=== PATIENT | male | born 1945 | race Caucasian/White ===

== ENCOUNTER → 2016-12-17 | Outpatient (CLI) | payer OTHER ==
[~2016-12-17] MED LIST: BICA50TA; CALC600T4; CHOL2000; GLUC1TAB21; MULT-717; OMEG300C; OMNIPAQUE 350 MG/ML, 100ML BOTTLE ONE; TAMS0.4C2; VITA150T; ZINC1CAP
== END | disposition home or self-care (01) ==
LOC: CFH 08:44
PROVIDERS: ATTEND Urology
DX: C61 Malignant neoplasm of prostate (principal); N28.1 Cyst of kidney, acquired
CPT/HCPCS: 74178; Q9967

== ENCOUNTER → 2018-01-10 | Outpatient (CLI) | payer OTHER ==
[~2018-01-10] MED LIST changes: -BICA50TA; +BICA50TA48; -OMNIPAQUE 350 MG/ML, 100ML BOTTLE ONE
== END | disposition home or self-care (01) ==
LOC: CFH 08:14
PROVIDERS: ATTEND Urology
DX: C61 Malignant neoplasm of prostate (principal); M81.0 Age-related osteoporosis without current pathological fracture; F17.210 Nicotine dependence, cigarettes, uncomplicated
CPT/HCPCS: 77080

== ENCOUNTER → 2018-01-14 | Outpatient (CLI) | payer OTHER ==
[~2018-01-14] MED LIST changes: +OMNIPAQUE 350 MG/ML, 100ML BOTTLE ONE
== END | disposition home or self-care (01) ==
LOC: RAD 08:50
PROVIDERS: ATTEND Urology
DX: N42.9 Disorder of prostate, unspecified (principal); E04.2 Nontoxic multinodular goiter; R91.1 Solitary pulmonary nodule; K57.30 Diverticulosis of large intestine without perforation or abscess without bleeding; N28.1 Cyst of kidney, acquired; C61 Malignant neoplasm of prostate; Z87.891 Personal history of nicotine dependence
CPT/HCPCS: 71260; 74177; 78306; A9503; Q9967

== ENCOUNTER → 2018-04-02 | Outpatient (CLI) | payer OTHER ==
[~2018-04-02] MED LIST changes: +ASCO10004 PO; +ATOR10TA PO; +CALC1CAP8 PO; +CHOL200052 PO; +ENZA40CA PO; +FISH OIL PO; +GLUC1TAB35 PO; +LISI-167 PO; +MULT-516 PO; +OCCUVITE PO; -OMNIPAQUE 350 MG/ML, 100ML BOTTLE ONE; +SAW/1TAB2 PO; +VIT1TABL32 PO; +VITA150T PO
[2018-04-02 15:43] LABS: ALANINE AMINOTRANSFERASE 19 U/L (12-78); ALBUMIN 3.9 g/dL (3.4-5.0); ANION GAP 8 mmol/L (5-15); CALCIUM 9.1 mg/dL (8.5-10.1); CHLORIDE 108 mmol/L (98-107); CREATININE 1.16 mg/dL (0.7-1.3)
[2018-04-02 15:45] LABS: ALKALINE PHOSPHATASE 91 U/L (45-117); BILIRUBIN,TOTAL 0.6 mg/dL (0.2-1.0); TOTAL PROTEIN 7.3 g/dL (6.4-8.2)
== END | disposition home or self-care (01) ==
LOC: STAR 14:24
PROVIDERS: ATTEND Urology
DX: Z01.818 Encounter for other preprocedural examination (principal); D41.4 Neoplasm of uncertain behavior of bladder
CPT/HCPCS: 36415; 80053; 93005

== ENCOUNTER 2018-04-09 05:40 | Day surgery (SDC) | payer OTHER ==
[~2018-04-09] VITALS: Ht 182.9 cm; Wt 86.7 kg
[2018-04-09] MEDS ORDERED: LACTATED RINGERS 1,000 ML IV SCH (06:10)
[2018-04-09 06:35] VITALS: BP 129/80
[2018-04-09] MEDS ORDERED: MITOMYCIN 40 MG, WATER FOR INJECTION,STERILE 40 ML in SYRINGE 1 EA INTVESIC ONE (07:30)
[2018-04-09] MEDS ORDERED: PROPOFOL 10 MG/ML, 20ML ONE (07:32)
[2018-04-09] MEDS ORDERED: CEFAZOLIN 1,000 MG ONE (07:32)
[2018-04-09] MEDS ORDERED: FENTANYL PF 100 MCG/2ML ONE (07:36)
[2018-04-09] MEDS ORDERED: MIDAZOLAM 1 MG/ML, 2ML ONE (07:36)
[2018-04-09] MEDS ORDERED: FENTANYL PF 100 MCG/2ML IV PRN (08:30)
[2018-04-09] MEDS ORDERED: ONDANSETRON 2MG/ML, 2ML IVPush PRN (08:30)
[2018-04-09] MEDS ORDERED: MIDAZOLAM 1 MG/ML, 2ML IV PRN (08:30)
[2018-04-09] MEDS ORDERED: MEPERIDINE/PF 25MG/0.5ML IVPush PRN (08:30)
[2018-04-09] MEDS ORDERED: LABETALOL 5MG/ML, 20ML IV PRN (08:30)
[2018-04-09] MEDS ORDERED: HYDROmorphone 1 MG/ML, 1ML IV PRN (08:30)
[2018-04-09] MEDS ORDERED: OXYcodone 5 MG/5 ML ORAL.SOL UDC PO PRN (08:30)
== END 2018-04-09 11:05 | disposition home or self-care (01) ==
LOC: OUT 05:40
PROVIDERS: ATTEND Urology
DX: C67.9 Malignant neoplasm of bladder, unspecified (principal); I10 Essential (primary) hypertension; Z72.89 Other problems related to lifestyle; Z85.46 Personal history of malignant neoplasm of prostate
CPT/HCPCS: 52234; 88307; J0690; J2250; J2704; J3010; J7120

== ENCOUNTER 2018-04-09 23:11 | Emergency (ER) | payer OTHER ==
[~2018-04-09] VITALS: Ht 182.9 cm; Wt 87.3 kg
[2018-04-10 00:18] VITALS: BP 136/67
== END 2018-04-10 01:11 | disposition home or self-care (01) ==
LOC: ED 23:59
DX: R33.9 Retention of urine, unspecified (principal); Z87.891 Personal history of nicotine dependence
CPT/HCPCS: 51702; 99284

== ENCOUNTER → 2018-06-12 | Outpatient (CLI) | payer MEDICARE ==
[~2018-06-12] MED LIST changes: +OMNIPAQUE 350 MG/ML, 100ML BOTTLE ONE
== END | disposition home or self-care (01) ==
LOC: PETCFH 07:42
PROVIDERS: ATTEND Urology
DX: C61 Malignant neoplasm of prostate (principal); C79.51 Secondary malignant neoplasm of bone; M47.814 Spondylosis without myelopathy or radiculopathy, thoracic region; N28.1 Cyst of kidney, acquired; I70.0 Atherosclerosis of aorta; J43.9 Emphysema, unspecified; R91.1 Solitary pulmonary nodule; E29.1 Testicular hypofunction; R97.20 Elevated prostate specific antigen [PSA]; N52.9 Male erectile dysfunction, unspecified
CPT/HCPCS: 71260; 74177; 78306; 82565; A9503; Q9967

== ENCOUNTER → 2018-09-10 | Outpatient (CLI) | payer MEDICARE ==
[~2018-09-10] MED LIST changes: +ABIR250T PO; +ATOR10TA9 PO; +C,E,1CAP PO; +GLUC500T11 PO; +OMEG1CAP23 PO; -OMNIPAQUE 350 MG/ML, 100ML BOTTLE ONE; +PRED5TAB PO; +Super B Complex PO; +TAMS-11 PO; +Vitamin D3 PO
[2018-09-10 15:41] LABS: MICROSCOPIC INDICATED
[2018-09-10 15:50] LABS: ALANINE AMINOTRANSFERASE 22 U/L (12-78); ANION GAP 5 mmol/L (5-15); CALCIUM 9.9 mg/dL (8.5-10.1); CHLORIDE 105 mmol/L (98-107); CREATININE 1.43 mg/dL (0.7-1.3)
[2018-09-10 15:53] LABS: ALKALINE PHOSPHATASE 87 U/L (45-117); BILIRUBIN,TOTAL 0.7 mg/dL (0.2-1.0); TOTAL PROTEIN 7.3 g/dL (6.4-8.2)
== END | disposition home or self-care (01) ==
LOC: STAR 14:29
PROVIDERS: ATTEND Urology
DX: Z01.818 Encounter for other preprocedural examination (principal)
CPT/HCPCS: 36415; 80053; 81001; 87086; 93005

== ENCOUNTER 2019-04-02 14:04 | Outpatient (CLI) | payer MEDICARE | END 2019-04-02 23:59 | disposition home or self-care (01) | LOC: PETCFH 14:04 | PROVIDERS: ATTEND Urology | DX: R97.21 Rising PSA following treatment for malignant neoplasm of prostate (principal); N28.1 Cyst of kidney, acquired | CPT/HCPCS: 78815; 93017; A9588 ==

== ENCOUNTER 2019-05-02 13:49 | Emergency (ER) | payer MEDICARE ==
[~2019-05-02] VITALS: Ht 182.9 cm; Wt 90.3 kg
--- NOTE | 2019-05-02 14:21 | NUR ---
AMBULATORY TO ED ROOM 29 W/ STEADY GAIT. EKG WAS DONE IN TRIAGE.
--- NOTE | 2019-05-02 14:49 | NUR ---
A&OX4, RESP EVEN & UNLABORED SPEECH CLEAR, SKIN WNL. C/O LT UPPER CHEST RADIATING TO SHOULDER DOWN ARM TO WRIST. NOTICED PAIN THIS MORNING. DENIES TRAUMA. HAS BEEN LIFTING DOORS AND FIREWOOD. LIMITED ROM SHOULDER R/T PAIN. FULL ROM ELBOW, HAND, FINGERS. TOOK ALEVE 2 TABS AT 1030. RT HANDEDNESS. SPOUSE IN ROOM. CARDIAC & VS MONITORING IN PROGRESS.
[2019-05-02 14:50] LABS: BASOPHILS # (AUTO) 0.02 x10^3/uL (0-0.1); BASOPHILS % (AUTO) 1 % (0-1); EOSINOPHILS # (AUTO) 0.13 x10^3/uL (0-0.4); EOSINOPHILS % (AUTO) 3 % (1-7); LYMPHOCYTES # (AUTO) 0.75 x10^3/uL (1-3.4); LYMPHOCYTES % (AUTO) 16 % (22-44); MD NO; MEAN CORPUSCULAR HEMOGLOBIN 35.4 pg (27.5-34.5); MEAN CORPUSCULAR VOLUME 103.8 fL (81-97); MEAN PLATELET VOLUME 7.6 fL (7.4-10.4); MONOCYTES # (AUTO) 0.38 x10^3/uL (0.2-0.8); MONOCYTES % (AUTO) 8 % (2-9); NEUTROPHILS # (AUTO) 3.44 x10^3/uL (1.8-6.8); NEUTROPHILS % (AUTO) 73 % (42-75); PLATELET COUNT 238 x10^3/uL (130-400); RED BLOOD COUNT 3.89 x10^6/uL (4.38-5.82); RED CELL DISTRIBUTION WIDTH 12.2 % (9.4-14.8)
--- NOTE | 2019-05-02 14:54 | NUR ---
TO RADIOLOGY PER SHERON.
[2019-05-02 15:03] LABS: ALBUMIN 3.8 g/dL (3.4-5.0); ANION GAP 5 mmol/L (5-15); CALCIUM 9.6 mg/dL (8.5-10.1); CHLORIDE 107 mmol/L (98-107); CREATININE 1.17 mg/dL (0.7-1.3)
[2019-05-02 15:08] LABS: TROPONIN I < 0.015 ng/mL (0.000-0.045)
[2019-05-02] MEDS ORDERED: KETOROLAC 30 MG/1 ML IM ONE (16:30)
--- NOTE | 2019-05-02 16:44 | NUR ---
PT ENDORSED TO BREAK RN: MANDEEP
[2019-05-02] MEDS ORDERED: KETOROLAC 30 MG/1 ML ONE (17:04)
--- NOTE | 2019-05-02 17:18 | NUR ---
BREAK RN: PT MEDICATED FOR 3/10 PAIN ORDERED. REPEAT EKG COMPLETED. PT AND PTS UPDATED ON POC. SR PER MONITOR.
--- NOTE | 2019-05-02 17:37 | NUR ---
CARE FOR DC PROVIDED. NO IV TO DC. NO SIG CHANGE IN PAIN LEVEL AT THIS TIME. REVIEWED DC INSTRUCTIONS WITH PT AND PTS . UNDERSTANDING VERBALIZED. PT DECLINED W/C. PT LEFT AMB, GAIT STEADY.
[2019-05-02 17:38] VITALS: BP 186/90
== END 2019-05-02 17:40 | disposition home or self-care (01) ==
LOC: ED 14:58
DX: R07.2 Precordial pain (principal); M25.512 Pain in left shoulder; I10 Essential (primary) hypertension; Z87.891 Personal history of nicotine dependence
CPT/HCPCS: 36415; 71045; 73030; 80048; 82040; 84484; 85025; 93005; 96372; 99284; J1885

== ENCOUNTER → 2019-08-12 | Outpatient (CLI) | payer MEDICARE ==
[~2019-08-12] MED LIST changes: +OMNIPAQUE 350 MG/ML, 100ML BOTTLE ONE
== END | disposition home or self-care (01) ==
LOC: RAD 10:38
PROVIDERS: ATTEND Urology
DX: C61 Malignant neoplasm of prostate (principal); K76.0 Fatty (change of) liver, not elsewhere classified; K57.30 Diverticulosis of large intestine without perforation or abscess without bleeding; N40.0 Benign prostatic hyperplasia without lower urinary tract symptoms; I70.0 Atherosclerosis of aorta; R91.1 Solitary pulmonary nodule; J98.11 Atelectasis; E04.2 Nontoxic multinodular goiter; M47.814 Spondylosis without myelopathy or radiculopathy, thoracic region; R59.9 Enlarged lymph nodes, unspecified; N13.30 Unspecified hydronephrosis; N13.4 Hydroureter; N28.1 Cyst of kidney, acquired; N13.5 Crossing vessel and stricture of ureter without hydronephrosis
CPT/HCPCS: 71260; 74177; 78306; A9503; Q9967

== ENCOUNTER 2019-09-25 08:59 | Day surgery (SDC) | payer MEDICARE ==
[~2019-09-25] VITALS: Ht 182.9 cm; Wt 81.9 kg
[~2019-09-25 08:59] MED LIST changes: -OMNIPAQUE 350 MG/ML, 100ML BOTTLE ONE; +ONDA8TAB16 SL; +PROC10TA2 PO
[2019-09-25] MEDS ORDERED: CEFAZOLIN PMX 1GM/50ML 50 ML IV STA (09:36)
[2019-09-25] MEDS ORDERED: SODIUM CHLORIDE 0.9% 1,000 ML IV STA (09:36)
[2019-09-25 09:37] VITALS: BP 164/85
[2019-09-25] MEDS ORDERED: CEFAZOLIN PMX 1GM/50ML 50 ML ONE (09:41)
[2019-09-25] MEDS ORDERED: SODIUM CHLORIDE 0.9% 1,000 ML IV SCH (11:00)
[2019-09-25] MEDS ORDERED: LIDOCAINE 1%, 10ML ONE (11:06)
[2019-09-25] MEDS ORDERED: LIDOCAINE 1%, 20ML ONE (11:06)
[2019-09-25] MEDS ORDERED: NALOXONE 1 MG/ML, 2ML ONE (11:16)
[2019-09-25] MEDS ORDERED: FENTANYL PF 100 MCG/2ML ONE (11:16)
[2019-09-25] MEDS ORDERED: MIDAZOLAM 1 MG/ML, 5ML ONE (11:16)
[2019-09-25] MEDS ORDERED: FLUMAZENIL 0.1 MG/1 ML, 5ML ONE (11:16)
== END 2019-09-25 13:20 | disposition home or self-care (01) ==
LOC: OUT 08:59
PROVIDERS: ATTEND Pathology Hematology
DX: C61 Malignant neoplasm of prostate (principal); C79.51 Secondary malignant neoplasm of bone; I10 Essential (primary) hypertension; Z79.899 Other long term (current) drug therapy; Z85.51 Personal history of malignant neoplasm of bladder; Z90.6 Acquired absence of other parts of urinary tract; Z90.79 Acquired absence of other genital organ(s)
CPT/HCPCS: 36561; 76937; 77001; 99156; 99157; C1788; J0690; J2250; J3010; J7030; J2310

== ENCOUNTER → 2019-11-04 | Outpatient (CLI) | payer MEDICARE ==
[~2019-11-04] MED LIST changes: +OMNIPAQUE 350 MG/ML, 100ML BOTTLE ONE
== END | disposition home or self-care (01) ==
LOC: CFH 12:34
PROVIDERS: ATTEND Pathology Hematology
DX: C61 Malignant neoplasm of prostate (principal); C79.51 Secondary malignant neoplasm of bone; R91.1 Solitary pulmonary nodule; M89.58 Osteolysis, other site; N13.30 Unspecified hydronephrosis; N28.1 Cyst of kidney, acquired; R59.1 Generalized enlarged lymph nodes; N32.89 Other specified disorders of bladder
CPT/HCPCS: 71260; 74177; Q9967

== ENCOUNTER → 2020-02-03 | Outpatient (CLI) | payer MEDICARE ==
[~2020-02-03] MED LIST changes: +ASCO100018 PO; -ASCO10004 PO; -CALC600T4; +CALC600T60
== END | disposition home or self-care (01) ==
LOC: RAD 10:19
PROVIDERS: ATTEND Pathology Hematology
DX: C61 Malignant neoplasm of prostate (principal); C79.51 Secondary malignant neoplasm of bone; N13.30 Unspecified hydronephrosis; J43.9 Emphysema, unspecified; J98.11 Atelectasis; J18.9 Pneumonia, unspecified organism; R91.8 Other nonspecific abnormal finding of lung field; K82.0 Obstruction of gallbladder; N28.1 Cyst of kidney, acquired
CPT/HCPCS: 71260; 74177; 78306; A9503; Q9967

== ENCOUNTER 2020-02-16 06:06 | Day surgery (SDC) | payer MEDICARE ==
[~2020-02-16] VITALS: Ht 182.9 cm; Wt 80.0 kg
[~2020-02-16 06:06] MED LIST changes: -OMNIPAQUE 350 MG/ML, 100ML BOTTLE ONE
[2020-02-16] MEDS ORDERED: SODIUM CHLORIDE 0.9% 1,000 ML IV SCH (07:06)
[2020-02-16 07:24] VITALS: BP 151/80
[2020-02-16] MEDS ORDERED: MIDAZOLAM 1 MG/ML, 5ML ONE (08:33)
[2020-02-16] MEDS ORDERED: FLUMAZENIL 0.1 MG/1 ML, 5ML ONE (08:33)
[2020-02-16] MEDS ORDERED: FENTANYL PF 100 MCG/2ML ONE (08:33)
[2020-02-16] MEDS ORDERED: NALOXONE 1 MG/ML, 2ML ONE (08:33)
== END 2020-02-16 10:55 | disposition home or self-care (01) ==
LOC: OUT 06:06
PROVIDERS: ATTEND Pathology Hematology
DX: R59.0 Localized enlarged lymph nodes (principal); C61 Malignant neoplasm of prostate; C67.9 Malignant neoplasm of bladder, unspecified; C79.51 Secondary malignant neoplasm of bone; I10 Essential (primary) hypertension; E78.00 Pure hypercholesterolemia, unspecified; Z79.899 Other long term (current) drug therapy; Z87.891 Personal history of nicotine dependence; Z98.890 Other specified postprocedural states
CPT/HCPCS: 49180; 77012; 88305; 99156; 99157; J2250; J3010; J7030; J2310

== ENCOUNTER → 2020-04-28 | Outpatient (CLI) | payer MEDICARE ==
[~2020-04-28] MED LIST changes: +OMNIPAQUE 350 MG/ML, 100ML BOTTLE ONE
== END | disposition home or self-care (01) ==
LOC: CFH 09:07
PROVIDERS: ATTEND Pathology Hematology
DX: C61 Malignant neoplasm of prostate (principal); N13.1 Hydronephrosis with ureteral stricture, not elsewhere classified; I25.10 Atherosclerotic heart disease of native coronary artery without angina pectoris; J98.4 Other disorders of lung; I70.0 Atherosclerosis of aorta; R59.0 Localized enlarged lymph nodes; N28.1 Cyst of kidney, acquired
CPT/HCPCS: 71260; 74177; Q9967

== ENCOUNTER → 2020-05-26 | Outpatient (CLI) | payer MEDICARE ==
[~2020-05-26] MED LIST changes: +CALC-55 PO; +CYAN50008 PO; +DOXY25TA18 PO; +FISH1CAP PO; +LEUP3.75 INJ; -OMNIPAQUE 350 MG/ML, 100ML BOTTLE ONE; +[UNRECOGNIZED DRUG - CODE] IV; +vitamin e PO
[2020-05-26 13:52] LABS: MICROSCOPIC NOT IND
[2020-05-26 13:57] LABS: MEAN CORPUSCULAR HEMOGLOBIN 34.4 pg (27.5-34.5); MEAN PLATELET VOLUME 7.7 fL (7.4-10.4); PLATELET COUNT 117 x10^3/uL (130-400); RED BLOOD COUNT 2.56 x10^6/uL (4.38-5.82); RED CELL DISTRIBUTION WIDTH 17.7 % (9.4-14.8)
[2020-05-26 14:00] LABS: INTERNATIONAL NORMALIZED RATIO 1.01 (0.93-1.1); PROTHROMBIN TIME 10.7 Seconds (9.6-11.5)
[2020-05-26 14:04] LABS: ALANINE AMINOTRANSFERASE 42 U/L (12-78); ALBUMIN 3.6 g/dL (3.4-5.0); ANION GAP 8 mmol/L (5-15); CALCIUM 8.8 mg/dL (8.5-10.1); CHLORIDE 110 mmol/L (98-107); CREATININE 1.12 mg/dL (0.7-1.3)
[2020-05-26 14:07] LABS: ALKALINE PHOSPHATASE 507 U/L (45-117); BILIRUBIN,TOTAL 0.5 mg/dL (0.2-1.0); TOTAL PROTEIN 6.8 g/dL (6.4-8.2)
[2020-05-26 14:47] LABS: MD YES
[2020-05-26 14:49] LABS: BAND#(MANUAL) 0.22 x10^3/uL; BANDS%(MANUAL) 7 % (0-7); BASOS% (MANUAL) 3 % (0-1); LYMPH#(MANUAL) 0.61 x10^3/uL (1-3.4); LYMPHS% (MANUAL) 19 % (22-44); METAMYELOCYTES% (MANUAL) 3 % (0-1); MONOS#(MANUAL) 0.13 x10^3/uL (0.3-2.7); MONOS% (MANUAL) 4 % (2-9); MYELOCYTES# (MANUAL) 0.13 x10^3/uL (0-0); MYELOCYTES% (MANUAL) 4 % (0-0); SEG#(MANUAL) 1.92 x10^3/uL (1.8-6.8); SEGS% (MANUAL) 60 % (42-75)
[2020-05-26 14:52] LABS: <PLATELET ESTIMATE> DECREASED; <PLT MORPHOLOGY> NORMAL PLT MORPH; ANISOCYTOSIS 1+
== END | disposition home or self-care (01) ==
LOC: STAR 10:13
PROVIDERS: ATTEND Urology
DX: Z01.812 Encounter for preprocedural laboratory examination (principal); Z20.828 Contact with and (suspected) exposure to other viral communicable diseases; N32.89 Other specified disorders of bladder; R94.31 Abnormal electrocardiogram [ECG] [EKG]
CPT/HCPCS: 80053; 81003; 85025; 85610; 85730; 87086; 87635; 93005